=== PATIENT | female | born 1970 | race Two or more races ===

== ENCOUNTER 2022-04-05 18:17 | Emergency (ER) | payer OTHER ==
[~2022-04-05] VITALS: Ht 162.6 cm; Wt 68.0 kg
[~2022-04-05 18:17] MED LIST: PROTONIX40 MG PO; VASOTEC5 MG
== END 2022-04-05 22:34 | disposition home or self-care (01) ==
LOC: ER 18:17
DX: S33.5XXA Sprain of ligaments of lumbar spine, initial encounter (principal)

== ENCOUNTER → 2024-09-27 | Emergency (ER) | payer OTHER ==
[~2024-09-27] VITALS: Ht 162.6 cm; Wt 76.2 kg
[~2024-09-27] MED LIST changes: +GLIMEPIRIDE2 MG
== END | disposition left against medical advice (07) ==
LOC: ER 20:19
DX: Z53.21 Procedure and treatment not carried out due to patient leaving prior to being seen by health care provider (principal)